=== PATIENT | male | born 1950 | race Caucasian/White ===

== ENCOUNTER 2017-09-30 07:26 | Emergency (ER) | payer MEDICARE, BC ==
[~2017-09-30] VITALS: Ht 182.9 cm; Wt 70.0 kg
[~2017-09-30 07:26] MED LIST: ASPIRIN 81 LOW81 MG PO; BACLOFEN10 MG OR; BACLOFEN10 MG PO; BACLOFEN20 MG OR; CIPRO500 MG OR; DOXYCYCL HYC100 M3 PO; IPRATROPIU0.5 MG/3 M IN; SMZ-TMP DS1 TAB PO; TAMSULOSIN0.4 MG PO
[2017-09-30 08:13] LABS: URINE BILIRUBIN - DIPSTICK NEGATIVE (NEGATIVE); URINE BLOOD DIPSTICK TRACE-INTACT (NEGATIVE); URINE COLOR YELLOW; URINE GLUCOSE - DIPSTICK NEGATIVE (NEGATIVE); URINE KETONE >=80 mg/dL (NEGATIVE); URINE LEUK ESTERASE TRACE (NEGATIVE); URINE PROTEIN - DIPSTICK 30 mg/dL (NEG-TRACE); URINE SPECIFIC GRAVITY >=1.030; URINE UROBILINOGEN - DIPSTICK 0.2 E.U./dL (0.2)
[2017-09-30 08:14] LABS: URINE CLARITY CLOUDY; URINE NITRITE - DIPSTICK POSITIVE (Negative)
[2017-09-30 08:22] LABS: URINE SQUAMOUS EPITHELIAL CELL MODERATE EPI/hpf (0-FEW); URINE WBC >100 WBC/hpf (0-5)
[2017-09-30 08:23] LABS: URINE BACTERIA MODERATE hpf; URINE RBC 0-2 RBC/hpf (0-5)
[2017-09-30 09:00] LABS: HEMATOCRIT 41.3 % (39.0-50.0); IMMATURE GRANULOCYTES 0.4 % (0.0-1.0); MEAN CELL VOLUME 90.6 fL CALC (80.0-100.0); MEAN CORPUSCULAR HGB 30.7 pG CALC (26.0-32.0); MEAN CORPUSCULAR HGB CONC 33.9 g/L CALC (32.0-36.0); NEUT# 11.54 thou/uL (1.82-7.42); RED BLOOD COUNT 4.56 mill/uL (4.70-6.10); RED CELL DISTRI WIDTH 13.7 % (11.5-15.5)
[2017-09-30 09:21] LABS: ALBUMIN 3.6 g/dL (3.2-5.0); ALKALINE PHOSPHATASE 63 u/l (38-126); ANION GAP 15 (6-22 (CALC)); BILIRUBIN, TOTAL 1.3 mg/dL (0.0-1.4); BUN 14 mg/dL (8-23); BUN/CREATININE RATIO 28 (12-20 (CALC)); CARBON DIOXIDE 28 mmol/l (22-30); CHLORIDE 101 mmol/l (95-108); CREATININE 0.5 mg/dL (0.7-1.3); GFR > 60 ML/MIN (>=60 (CALC)); GFR FOR AFR.AMER. > 60 ML/MIN (>=60 (CALC)); POTASSIUM 4.2 mmol/l (3.5-5.1); SGOT/AST 14 u/l (19-48); SGPT/ALT 33 u/l (11-66); SODIUM 140 mmol/l (137-146); TOTAL PROTEIN 5.8 g/dL (6.3-8.2)
[2017-09-30] MEDS ORDERED: PYRIDIUM200 MG PO (09:25)
[2017-09-30] MEDS ORDERED: BACTRIM DS1 TAB PO (09:25)
[2017-09-30 09:26] VITALS: BP 108/66
== END 2017-09-30 09:28 | disposition home or self-care (01) ==
LOC: ED 07:26
PROVIDERS: Emergency Medicine
DX: N39.0 Urinary tract infection, site not specified (principal); E03.9 Hypothyroidism, unspecified; G35 Multiple sclerosis; B96.20 Unspecified Escherichia coli [E. coli] as the cause of diseases classified elsewhere

== ENCOUNTER 2019-03-27 01:29 | Emergency (ER) | payer MEDICARE, BC ==
[~2019-03-27] VITALS: Ht 182.9 cm; Wt 67.7 kg
[2019-03-27 01:07] LABS: GFR > 60 ML/MIN (>=60 (CALC)); GFR FOR AFR.AMER. > 60 ML/MIN (>=60 (CALC))
[2019-03-27 01:10] LABS: HEMATOCRIT 43.6 % (39.0-50.0); HEMOGLOBIN 14.5 g/dl (14.0-18.0); IMMATURE GRANULOCYTES 0.4 % (0.0-5.0); MEAN CELL VOLUME 90.3 fL CALC (80.0-100.0); MEAN CORPUSCULAR HGB CONC 33.3 g/L CALC (32.0-36.0); NEUT# 8.85 thou/uL (1.82-7.42); RED BLOOD COUNT 4.83 mill/uL (4.70-6.10); RED CELL DISTRI WIDTH 13.4 % (11.5-15.5)
[2019-03-27 01:23] LABS: INTERNATIONAL NORMALIZED RATIO 0.9 RATIO (0.7-1.3); PROTHROMBIN TIME 9.9 SECONDS (9.0-12.5)
[2019-03-27 01:24] LABS: ALBUMIN 4.1 g/dL (3.2-5.0); ALKALINE PHOSPHATASE 98 u/l (38-126); ANION GAP 13 (6-22 (CALC)); BILIRUBIN, TOTAL 0.7 mg/dL (0.0-1.4); BUN 18 mg/dL (8-23); BUN/CREATININE RATIO 36 (12-20 (CALC)); CARBON DIOXIDE 31 mmol/l (22-30); CHLORIDE 99 mmol/l (95-108); CREATININE 0.5 mg/dL (0.7-1.3); ETHYL ALCOHOL 0 mg/dl (0-30); GFR > 60 ML/MIN (>=60 (CALC)); GFR FOR AFR.AMER. > 60 ML/MIN (>=60 (CALC)); POTASSIUM 4.2 mmol/l (3.5-5.1); SGOT/AST 24 u/l (19-48); SODIUM 139 mmol/l (137-146); TOTAL PROTEIN 6.7 g/dL (6.3-8.2)
[~2019-03-27 01:29] MED LIST changes: +BACTRIM DS1 TAB PO; +PYRIDIUM200 MG PO
[2019-03-27 01:36] LABS: MYOGLOBIN 32 ng/mL (0 - 121)
[2019-03-27 01:59] LABS: AMYLASE 60 u/l (30-110); LIPASE 184 u/l (23-300)
[2019-03-27 02:03] LABS: URINE BILIRUBIN - DIPSTICK NEGATIVE (NEGATIVE); URINE BLOOD DIPSTICK NEGATIVE (NEGATIVE); URINE COLOR YELLOW; URINE GLUCOSE - DIPSTICK NEGATIVE (NEGATIVE); URINE KETONE 15 mg/dL (NEGATIVE); URINE LEUK ESTERASE LARGE (NEGATIVE); URINE NITRITE - DIPSTICK POSITIVE (Negative); URINE PH 6.5 (4.5-8.0); URINE PROTEIN - DIPSTICK NEGATIVE (NEG-TRACE); URINE UROBILINOGEN - DIPSTICK 0.2 E.U./dL (0.2)
[2019-03-27 02:04] LABS: BARBITURATES NEGATIVE (NEGATIVE); COCAINE NEGATIVE (NEGATIVE); METHADONE NEGATIVE (NEGATIVE); OXCYCODONE NEGATIVE (NEGATIVE); TETRAHYDROCANNABIONOL NEGATIVE (NEGATIVE); TRICYLIC ANTIDEPRESSANTS NEGATIVE (NEGATIVE); URINE BACTERIA MANY hpf; URINE EPITHELIAL CELLS FEW EPI/hpf (0-FEW); URINE WBC 20-50 WBC/hpf (0-5)
[2019-03-27] MEDS ORDERED: ASPIRIN325 MG PO (02:26)
[2019-03-27 03:03] VITALS: BP 150/72
== END 2019-03-27 03:05 | disposition short-term general hospital (02) ==
LOC: ED 01:29
PROVIDERS: Emergency Medicine
DX: G93.40 Encephalopathy, unspecified (principal); R51 Headache; R47.01 Aphasia; R11.10 Vomiting, unspecified; N39.0 Urinary tract infection, site not specified; G35 Multiple sclerosis; Z99.3 Dependence on wheelchair; G82.20 Paraplegia, unspecified; E03.9 Hypothyroidism, unspecified; B96.89 Other specified bacterial agents as the cause of diseases classified elsewhere

== ENCOUNTER 2019-06-13 | Emergency (ER) | payer MEDICARE, BC ==
[~2019-06-13] MED LIST changes: +ASPIRIN325 MG PO
[2019-06-13 17:35] LABS: IMMATURE GRANULOCYTES 0.3 % (0.0-5.0); MEAN CELL VOLUME 91.8 fL CALC (80.0-100.0); MEAN CORPUSCULAR HGB 29.9 pG CALC (26.0-32.0); MEAN CORPUSCULAR HGB CONC 32.6 g/L CALC (32.0-36.0); NEUT# 8.47 thou/uL (1.82-7.42); RED BLOOD COUNT 5.01 mill/uL (4.70-6.10); RED CELL DISTRI WIDTH 13.2 % (11.5-15.5)
[2019-06-13 17:39] LABS: URINE BILIRUBIN - DIPSTICK NEGATIVE (NEGATIVE); URINE BLOOD DIPSTICK NEGATIVE (NEGATIVE); URINE COLOR YELLOW; URINE GLUCOSE - DIPSTICK NEGATIVE (NEGATIVE); URINE KETONE NEGATIVE (NEGATIVE); URINE LEUK ESTERASE NEGATIVE (NEGATIVE); URINE NITRITE - DIPSTICK NEGATIVE (Negative); URINE PH 6.5 (4.5-8.0); URINE PROTEIN - DIPSTICK NEGATIVE (NEG-TRACE); URINE UROBILINOGEN - DIPSTICK 0.2 E.U./dL (0.2)
[2019-06-13 17:54] LABS: ALBUMIN 4.2 g/dL (3.2-5.0); ALKALINE PHOSPHATASE 82 u/l (38-126); ANION GAP 9 (6-22 (CALC)); BILIRUBIN, TOTAL 0.6 mg/dL (0.0-1.4); BUN 14 mg/dL (8-23); CARBON DIOXIDE 30 mmol/l (22-30); CHLORIDE 100 mmol/l (95-108); LIPASE 63 u/l (23-300); POTASSIUM 4.1 mmol/l (3.5-5.1); SGOT/AST 18 u/l (19-48); SODIUM 136 mmol/l (137-146); TOTAL PROTEIN 6.7 g/dL (6.3-8.2)
[2019-06-13 18:34] LABS: BUN/CREATININE RATIO 35 (12-20 (CALC)); CREATININE 0.4 mg/dL (0.7-1.3); GFR > 60 ML/MIN (>=60 (CALC)); GFR FOR AFR.AMER. > 60 ML/MIN (>=60 (CALC))
[2019-06-13] MEDS ORDERED: ONDANSETRON4 MG PO (19:50)
[2019-06-14] MEDS ORDERED: ONDANSETRON4 MG PO ×2 (11:11)
== END 2019-06-13 21:04 | disposition home or self-care (01) ==
PROVIDERS: Family Medicine
DX: K52.9 Noninfective gastroenteritis and colitis, unspecified (principal); G35 Multiple sclerosis; E03.9 Hypothyroidism, unspecified; N39.0 Urinary tract infection, site not specified

== ENCOUNTER 2020-02-03 19:08 | Emergency (ER) | payer MEDICARE, BC ==
[~2020-02-03] VITALS: Ht 182.9 cm; Wt 70.5 kg
[~2020-02-03 19:08] MED LIST changes: +ONDANSETRON4 MG PO
[2020-02-03 20:18] LABS: HEMATOCRIT 43.2 % (39.0-50.0); IMMATURE GRANULOCYTES 0.2 % (0.0-5.0); MEAN CELL VOLUME 91.9 fL CALC (80.0-100.0); MEAN CORPUSCULAR HGB 29.8 pG CALC (26.0-32.0); MEAN CORPUSCULAR HGB CONC 32.4 g/dL CAL (32.0-36.0); NEUT# 3.16 thou/uL (1.82-7.42); RED BLOOD COUNT 4.7 mill/uL (4.70-6.10); RED CELL DISTRI WIDTH 13.2 % (11.5-15.5)
[2020-02-03 20:32] LABS: ALBUMIN 3.9 g/dL (3.2-5.0); ALKALINE PHOSPHATASE 73 u/l (38-126); ANION GAP 9 (6-22 (CALC)); BILIRUBIN, TOTAL 0.4 mg/dL (0.0-1.4); BUN 15 mg/dL (8-23); BUN/CREATININE RATIO 37 (12-20 (CALC)); CARBON DIOXIDE 32 mmol/l (22-30); CHLORIDE 100 mmol/l (95-108); CREATININE 0.4 mg/dL (0.7-1.3); GFR > 60 ML/MIN (>=60 (CALC)); GFR FOR AFR.AMER. > 60 ML/MIN (>=60 (CALC)); POTASSIUM 4.1 mmol/l (3.5-5.1); SGOT/AST 21 u/l (19-48); SODIUM 137 mmol/l (137-146)
[2020-02-03 21:20] LABS: URINE BILIRUBIN - DIPSTICK NEGATIVE (NEGATIVE); URINE BLOOD DIPSTICK NEGATIVE (NEGATIVE); URINE COLOR YELLOW; URINE GLUCOSE - DIPSTICK NEGATIVE (NEGATIVE); URINE KETONE NEGATIVE (NEGATIVE); URINE LEUK ESTERASE NEGATIVE (NEGATIVE); URINE NITRITE - DIPSTICK NEGATIVE (Negative); URINE PROTEIN - DIPSTICK NEGATIVE (NEG-TRACE); URINE SPECIFIC GRAVITY 1.015; URINE UROBILINOGEN - DIPSTICK 0.2 E.U./dL (0.2)
[2020-02-03] MEDS ORDERED: ZOFRAN4 MG/TAB PO (21:26)
[2020-02-03] MEDS ORDERED: TORADOL PO (21:26)
[2020-02-03 21:42] VITALS: BP 156/73
== END 2020-02-03 21:58 | disposition home or self-care (01) ==
LOC: ED 19:08
PROVIDERS: Family Medicine
DX: R51 Headache (principal); R11.0 Nausea; G35 Multiple sclerosis; E03.9 Hypothyroidism, unspecified; Z20.828 Contact with and (suspected) exposure to other viral communicable diseases; Z87.440 Personal history of urinary (tract) infections

== ENCOUNTER 2023-06-22 04:58 | Inpatient (IN) | payer MEDICARE, BC ==
[2023-06-22] VITALS (505 sets, daily range): BP systolic 68–156; BP diastolic 41–113
[~2023-06-22] VITALS: Ht 182.9 cm; Wt 68.0 kg
[~2023-06-22 04:58] MED LIST changes: +TORADOL PO; +ZOFRAN4 MG/TAB PO
[2023-06-22 05:21] LABS: BASO% 0.2 % (0-3); IMMATURE GRANULOCYTES 0.1 % (0.0-5.0); LYMPH% 2.7 % (15-41); MEAN CELL VOLUME 90.3 fL CALC (80.0-100.0); MEAN CORPUSCULAR HGB 29.1 pG CALC (26.0-32.0); MEAN CORPUSCULAR HGB CONC 32.3 g/dL CAL (32.0-36.0); MONO% 5.1 % (2-13); NEUT# 13.44 thou/uL (1.82-7.42); NEUT% 91.9 % (42-76); RED BLOOD COUNT 5.49 mill/uL (4.70-6.10); RED CELL DISTRI WIDTH 13.6 % (11.5-15.5)
--- NOTE | 2023-06-22 05:22 | NUR ---
MAG INFUSUION STOPPED AT THIS TIME. PATIENT BLOOD PRESSURE DID NOT TOLERATE IT.
--- NOTE | 2023-06-22 05:22 | NUR ---
COUNSELLING PSYCHOLOGIST AT BEDSIDE. ABG OBTAINED RESPIRATIONS CURRENTLY 55RPM. HR RATE ELEVATED AT 138. BLOOD PRESSURE 103/55.
[2023-06-22 05:28] LABS: HEMATOCRIT 49.6 % (39.0-50.0)
--- NOTE | 2023-06-22 05:31 | NUR ---
DILTIAZEM BOLUS GIVEN AT THIS TIME, REFERENCE EMAR.
[2023-06-22] MEDS ORDERED: BACTRIM DS1 TAB PO (05:42)
[2023-06-22] MEDS ORDERED: OMEPRAZOLE DR40 MG (05:42)
[2023-06-22] MEDS ORDERED: MONTELUKAST SOD10 MG PO (05:42)
--- NOTE | 2023-06-22 05:52 | NUR ---
AT BEDSIDE. CONSENT SIGNED FOR FEMORAL LINE.
--- NOTE | 2023-06-22 05:55 | NUR ---
R FEMORAL LINE INSERTED.
--- NOTE | 2023-06-22 06:00 | NUR ---
PER MD METOPROLOL ORDER WAS AN ERROR. MD HAS ORDERED TO HOLD THIS MEDICATION.
[2023-06-22 06:12] LABS: ALBUMIN 3.7 g/dL (3.2-5.0); ALKALINE PHOSPHATASE 84 u/l (38-126); BUN 23 mg/dL (8-23); BUN/CREATININE RATIO 45 (12-20 (CALC)); CHLORIDE 101 mmol/l (95-108); CREATININE 0.5 mg/dL (0.7-1.3); GFR FOR AFR.AMER. > 60 ML/MIN (>=60 (CALC)); GFR OTHER RACES > 60 ML/MIN (>=60 (CALC)); SGOT/AST 26 u/l (19-48); SODIUM 137 mmol/l (137-146); TOTAL PROTEIN 6.4 g/dL (6.3-8.2)
[2023-06-22 06:13] LABS: ANION GAP 18 (6-22 (CALC)); BILIRUBIN, TOTAL 0.9 mg/dL (0.2-1.3); CARBON DIOXIDE 22 mmol/l (22-30)
--- NOTE | 2023-06-22 06:15 | NUR ---
#16 F ORELLANA PLACED. PER PATIENT STRAIGHT CATHS HIMSELF, BUT HAS NOT BEEN ABLE TO DO SO IN TWO DAYS. 350ML OF YELLOW URINE EMPTIED. URINE SAMPLE COLLECTED.
--- NOTE | 2023-06-22 07:10 | NUR ---
report rec'd from norberto rn, pt started on cardizem drip by evening or night nurse supervisor rn. pt respiratory rate in the 50's on bipap, hr in 140's. pt alert and able to answer basic questions. bedside.
--- NOTE | 2023-06-22 07:13 | NUR ---
REPORT GIVEN TO William OVALLES RN. PATIENT SETTLED INTO BED, LINEN CHANGED AND PATIENT REPOSITIONED. CARDIZEM AND LEVOPHED STARTED.
--- NOTE | 2023-06-22 07:25 | NUR ---
getting pt set up for intubation by dr. cobos.
--- NOTE | 2023-06-22 07:42 | NUR ---
rocuronium and etomidate given for intubation, pt intubated by dr. cobos with 8.0 et tube secured at 22 at teeth.
[2023-06-22 08:07] LABS: URINE BLOOD DIPSTICK Negative (NEGATIVE); URINE GLUCOSE - DIPSTICK Negative (NEGATIVE); URINE KETONE >=160 mg/dL (NEGATIVE); URINE LEUK ESTERASE Negative (NEGATIVE); URINE NITRITE - DIPSTICK Negative (Negative); URINE PROTEIN - DIPSTICK 100 mg/dL (NEG-TRACE); URINE SPECIFIC GRAVITY >=1.030; URINE UROBILINOGEN - DIPSTICK 0.2 E.U./dL (0.2)
[2023-06-22 08:08] LABS: URINE COLOR Dark yellow
--- NOTE | 2023-06-22 08:10 | NUR ---
pt transported to ct with respiratory, patient on monitor, vitals stable.
[2023-06-22 08:21] LABS: URINE AMORPH SEDIMENT FEW hpf (NONE-FER); URINE BACTERIA FEW hpf; URINE HYALINE CAST FEW lpf (NONE-RARE); URINE RBC 0-2 RBC/hpf (0-5); URINE SQUAMOUS EPITHELIAL CELL FEW EPI/hpf (0-FEW); URINE TRANSITIONAL EPI. CELLS FEW hpf
[2023-06-22 08:23] LABS: URINE MUCUS MODERATE hpf (NONE-FEW)
--- NOTE | 2023-06-22 08:25 | NUR ---
levo on 25 mcg/min, propofol 35 mcg/kg/min. pt vitals stable
--- NOTE | 2023-06-22 08:59 | NUR ---
pt sedated, tolerating vent well, vitals stable, unable to get og tube in, both and i attempted.
--- NOTE | 2023-06-22 09:26 | NUR ---
ADVANCED ET TUBE 2CM AND RR INCREASED TO 20 PER .
--- NOTE | 2023-06-22 09:45 | NUR ---
bp decreased, propofol decreased to 30 mcg/kg/min, levofed increased to 30 mcg/min. vitals stable again
--- NOTE | 2023-06-22 10:16 | NUR ---
pt antibiotics complete, pt remains sedated, vitals stable. back at bedside. awaiting admission orders
--- NOTE | 2023-06-22 11:13 | NUR ---
report given to bella mcmillan, icu
--- NOTE | 2023-06-22 11:39 | NUR ---
pt transported to icu with second rn and respiratory, pt stable on transport
--- NOTE | 2023-06-22 11:40 | NUR ---
RECEIVED BEDSIDE REPORT FROM AUGUSTINA LOWRY. PT ARRIVES OBTUNDED AND INTUBATED. PROPOFOL @ 30. LEVOPHED AT 30. ORELLANA IN PLACE DRAINING MARC URINE WITH COPIOUS AMOUNTS OF SEDIMENT. RIGHT FEMORAL TLC IN PLACE WELL BILATERAL AC PERIPHERAL IV'S. ALL PATENT AND FUNCTIONING PROPERLY. ALL SAFETY EQUIPMENT IN PLACE AND FUNCTIONING PROPERLY.
--- NOTE | 2023-06-22 13:39 | NUR ---
S: JOSE R HERNANDEZ is a 73 M who presents with pneumonia, UTI and sepsis. He has a history of multiple sclerosis and hypothyroidism. All medications in patient's chart were reviewed. O: VS: BP:142/67 mmHg, P:94 bpm, RR:20bpm,T:98.4F W: 68kg, HT:72in, Scr=0.5 mg/dl,CrCl= 62.3ml/min A: Blood culture is pending. P: Patient is on cefepime 2gm IV Q8H and Flagyl 500mg IV Q8H. Vancomycin ordered for pharmacy to dose. Start Vancomycin 750mg IV Q12H. Vancomycin trough is drawn before the 4th dose on 06/24/23 at 01:30. Vancomycin goal trough is between 15-20 mcg/ml. Pharmacy will follow and or advise on antibiotics use as needed.
--- NOTE | 2023-06-22 13:58 | NUR ---
ROCURONIUM AND ETOMIDATE GIVEN AT 0742 THIS MORNING
--- NOTE | 2023-06-22 17:52 | NUR ---
DR CM ON TELEHEALTH SCREEN IN ROOM WITH PT AND SPOUSE. AGREES WITH CURRENT TREATMENT. CHANGED VASOPRESSIN DOSE FROM 0.03 TO 0.04.
--- NOTE | 2023-06-22 20:00 | NUR ---
PATIENT REPOSITIONED TO L SIDE. ORAL CARE PROVIDED. PATIENT VENTILATED AND SEDATED ON 35 MCG OF PROP (14.3 ML/HR) IN LAC. ST ON THE MONITOR. ORELLANA PATENT AND DRAINING TO GRAVITY, MARC URINE NOTED. LUNG WHEEZING/COARSE TO ASCULTATION. ABDOMEN SOFT. PERIPHERAL PULSES STRONG, PEDAL PULSES WEAK. B/L EDEMA NOTED IN LEG/FEET. NO APPARENT DISTRESS NOTED. SAFETY MEASURES IN PLACE INCLUDING BED IN LOW POSITION. WILL CONTINUE WITH PLAN OF CARE. VENT SETTINGS FOLLOWED: FIO2 50% VT 450 RR 20 PEEP 8
--- NOTE | 2023-06-22 20:11 | NUR ---
SPOKE WITH DR. CHAVES ON THE PHONE. STATED ZERO CHANGES WITH PATIENT AT THIS TIME.
--- NOTE | 2023-06-22 21:00 | NUR ---
COMPLETE BED BATH PROVIDED.
[2023-06-23] VITALS (85 sets, daily range): BP systolic 79–154; BP diastolic 41–87
--- NOTE | 2023-06-23 00:01 | NUR ---
PATIENT REPOSITIONED SUPINE. ORAL CARE PROVIDED. NO URINE NOTED IN ORELLANA. NO APPARENT DISTRESS NOTED. PROP INCREASED TO 40 MCG (16.3) D/T PATIENT LIFTING ARM TOWARDS ET. NO RESTRAINTS NECESSARY AT THIS TIME. BED IN LOW POSITION. WILL CONTINUE WITH PLAN OF CARE.
--- NOTE | 2023-06-23 02:30 | NUR ---
PATIENT REPOSITIONED TO R SIDE. ORAL CARE PROVIDED. SR ON THE MONITOR. NO APPARENT DISTRESS NOTED. WILL CONTINUE WITH PLAN OF CARE.
--- NOTE | 2023-06-23 04:00 | NUR ---
PATIENT RESPOSTIONED TO L SIDE. ORAL CARE PROVIDED. AFEBRILE. SR ON THE MONITOR. NO ISSUES AT THIS TIME. SAFETY MEASURES IN PLACE. WILL CONTINUE WITH PLAN OF CARE.
--- NOTE | 2023-06-23 05:54 | NUR ---
PATIENT REPOSITIONED SUPINE. 35 ML OF URINE IN ORELLANA. ORAL CARE PROVIDED. OG TUBE DROPPED. CXRAY/LABS OBTAINED. SAFETY MEASURES IN PLACE. WILL CONTINUE WITH PLAN OF CARE.
[2023-06-23 06:50] LABS: BASO% 0.1 % (0-3); IMMATURE GRANULOCYTES 0.2 % (0.0-5.0); LYMPH% 5.2 % (15-41); MEAN CELL VOLUME 90.9 fL CALC (80.0-100.0); MEAN CORPUSCULAR HGB 29.4 pG CALC (26.0-32.0); MEAN CORPUSCULAR HGB CONC 32.3 g/dL CAL (32.0-36.0); MONO% 5.8 % (2-13); NEUT# 13.21 thou/uL (1.82-7.42); NEUT% 88.7 % (42-76); RED BLOOD COUNT 3.64 mill/uL (4.70-6.10); RED CELL DISTRI WIDTH 14.1 % (11.5-15.5)
[2023-06-23 07:15] LABS: HEMATOCRIT 33.1 % (39.0-50.0); HEMOGLOBIN 10.7 g/dl (14.0-18.0)
--- NOTE | 2023-06-23 07:19 | NUR ---
REPORT GIVEN TO NEWTON PENDLETON
[2023-06-23 07:22] LABS: ANION GAP 8 (6-22 (CALC)); BUN 21 mg/dL (8-23); BUN 22 mg/dL (8-23); BUN/CREATININE RATIO 62 (12-20 (CALC)); CARBON DIOXIDE 22 mmol/l (22-30); CHLORIDE 107 mmol/l (95-108); CHLORIDE 108 mmol/l (95-108); CREATININE 0.4 mg/dL (0.7-1.3); GFR FOR AFR.AMER. > 60 ML/MIN (>=60 (CALC)); GFR OTHER RACES > 60 ML/MIN (>=60 (CALC)); POTASSIUM 3.5 mmol/l (3.5-5.1); POTASSIUM 3.7 mmol/l (3.5-5.1); SODIUM 134 mmol/l (137-146)
[2023-06-23 07:30] LABS: ALBUMIN 2.2 g/dL (3.2-5.0)
--- NOTE | 2023-06-23 08:00 | NUR ---
REPORT RECIEVED FROM NIGHT RN. PT ADMITTED YESTERDAY FOR ACUTE RESPIRATORY FAILURE AND WAS INTUBATED IN ED YESTERDAY. SHIP WASHER ATEMPTED TO DO WEANING TRIAL BUT WAS UNABLE PT NOT FOLLOWING COMMANDS. PT SEDATED APPROPRIATELY RASS -2. PT TOLERATING CURRENT VENT SETTINGS WELL; RT WAS AT BEDSIDE TO ADJUST. LUNGS COARSE/RHONCHI. THICK ORAL SECRETIONS SUCTIONED; MOUTH CARE PROVIDED. HEART RHYTHM REGULAR; PT IS NSR ON MONITOR. BOWEL SOUNDS HYPOACTIVE. PULSES STRONG UPPER EXTREMETIES, WEAK LOWER EXTREMETIES. +1 EDEMA BILATERAL LOWER EXTREMETIES. ORELLANA CATHETER IN PLACE. I/O BEING MONITORED. IV ACCESS 20G RAC AND R FEMORAL TRIPLE LUMEN. IV IN LAC REMOVED IS NOT NECESSARY AT THIS TIME. PT'S BP MAINTAINED WITH LEVOPHED; PT SEDATED WITH PROPOFOL. VSS AT THIS TIME. PT REPOSITIONED FOR COMFORT.
--- NOTE | 2023-06-23 08:56 | NUR ---
PHONE CALL FROM PT'S SPOUSE. SPOUSE UPDATED ON PT CONDITION.
--- NOTE | 2023-06-23 09:45 | NUR ---
PT'S SPOUSE AT BEDSIDE. VSS. PT TOLERATING CURRENT VENT SETTINGS WELL.
--- NOTE | 2023-06-23 09:50 | NUR ---
TELE VISIT WITH DR. CM COMPLETED.
--- NOTE | 2023-06-23 11:30 | NUR ---
PT REPOSITIONED FOR COMFORT AND ORAL SUCTIONING PERFORMED. VSS.
--- NOTE | 2023-06-23 13:00 | NUR ---
PT REPOSITIONED FOR COMFORT AND MOUTH CARE/ ORAL SUCTIONING PERFORMED. REPOSITIONING AND MOUTH CARE DONE AT LEAST Q2H. PT'S SPOUSE AT BEDSIDE. PT REMAINS SEDATED WITH PROPOFOL RASS -2 AND BP MAINTAINED WITH LEVOPHED. PT TOLERATING VENT SETTINGS WELL.
--- NOTE | 2023-06-23 13:30 | NUR ---
PT WAS REACHING FOR TUBING. SEDATION INCREASED SLIGHTLY AND ORDERS RECIEVED FROM DR. SMITH FOR RESTRAINTS. BILATERAL SOFT WRIST RESTRAINTS IN USE FOR PT SAFETY.
--- NOTE | 2023-06-23 15:30 | NUR ---
ATTEMPTING TO WEAN SEDATION AND LEVOPHED. WILL ATTEMPT WEANING TRIAL. VSS.
--- NOTE | 2023-06-23 16:52 | NUR ---
NO CHAMNGES TO PT STATUS. PT NOT FOLLOWING DIRECTIONS WHEN WEANED OFF SEDATION. SEDATION BACK TO ACHIEVE RASS -2. PT'S SPOUSE AT BEDSIDE. VSS.
--- NOTE | 2023-06-23 18:15 | NUR ---
PT REPOSITIONED AND ORAL SUCTIONING PERFORMED. LEVOPHED GTT WEANED OFF AT THE MOMENT; WILL MONITOR TO ENSURE PT'S BP TOLERATES. VSS.
--- NOTE | 2023-06-23 19:00 | NUR ---
REPORT RECEIVED FROM OFF GOING NURSE.
--- NOTE | 2023-06-23 20:00 | NUR ---
PATIENT NOTED LYINGIN BED RESTING WITH NO ACUTE DISTRESS NOTED. HE APPEARS UNCOMFORTABLE AND ATTEMPTING TO REACH FOR TUBING. PROPROFOL INCREASED TO 30 AT THIS TIME. PATIENT REPOSITIONED AND MOUTHCARE GIVEN. ASSESSMENT COMPLETED (SEE INTERVNETIONS). WILL CONTINUE TO MONITOR.
--- NOTE | 2023-06-23 22:00 | NUR ---
PATIENT REPOSITIONED. MOUTH CARE GIVEN. VSS. NO ACUTE DISTRESS NOTED. WILL CONTINUE TO MONITOR.
[2023-06-24] VITALS (139 sets, daily range): BP systolic 77–160; BP diastolic 41–89
--- NOTE | 2023-06-24 | NUR ---
PATIENT REPOSITIONED, MOUTH CARE GIVEN. VSS. NO SIGNIFICANT CHANGES NOTED. WILL CONTINUE TO MONITOR.
--- NOTE | 2023-06-24 02:00 | NUR ---
NO CHANGES NOTED, MOUTH CARE COMPLETED. PATIENT REPOSTIONED.
--- NOTE | 2023-06-24 04:00 | NUR ---
NO CHANGES NOTED. MOUTH CARE GIVEN, PATIENT REPOSITIONED. WILL CONTINUE TO MONITOR.
--- NOTE | 2023-06-24 05:00 | NUR ---
PATIENT RECEIVED FULL BED BATH AND LINEN CHANGE. WILL CONTINUE TO MONITOR.
[2023-06-24 05:24] LABS: BASO% 0.1 % (0-3); HEMOGLOBIN 9.6 g/dl (14.0-18.0); IMMATURE GRANULOCYTES 0.2 % (0.0-5.0); LYMPH% 3.6 % (15-41); MEAN CELL VOLUME 90.3 fL CALC (80.0-100.0); MEAN CORPUSCULAR HGB 29.9 pG CALC (26.0-32.0); MEAN CORPUSCULAR HGB CONC 33.1 g/dL CAL (32.0-36.0); MONO% 5.7 % (2-13); NEUT# 11.43 thou/uL (1.82-7.42); NEUT% 90.4 % (42-76); RED BLOOD COUNT 3.21 mill/uL (4.70-6.10); RED CELL DISTRI WIDTH 14.2 % (11.5-15.5)
[2023-06-24 05:32] LABS: ANION GAP 8 (6-22 (CALC)); BUN 18 mg/dL (8-23); BUN/CREATININE RATIO 46 (12-20 (CALC)); CARBON DIOXIDE 21 mmol/l (22-30); CHLORIDE 111 mmol/l (95-108); CREATININE 0.4 mg/dL (0.7-1.3); GFR FOR AFR.AMER. > 60 ML/MIN (>=60 (CALC)); GFR OTHER RACES > 60 ML/MIN (>=60 (CALC)); POTASSIUM 3.8 mmol/l (3.5-5.1); SODIUM 137 mmol/l (137-146)
--- NOTE | 2023-06-24 07:06 | NUR ---
REPORT GIVENT TO ONCOMING NURSE.
--- NOTE | 2023-06-24 07:40 | NUR ---
ORDERS RECIEVED FROM DR. SMITH TO ORDER INFECTIOUS DISEASE CONSULT AND RESTART LEVOPHED GTT. PT'S SYSTOLIC RANGING FROM HIGH 80'S TO LOW 100'S; MAP REMAINING 60 OR BETTER. LEVOPHED GTT RE-STARTED PER DR. SMITH'S REQUEST. PHONE CALL RECIEVED FROM [facility] IN RADIOLOGY REGARDING PT'S ET TUBE PLACEMENT. RT NOTIFIED OF FINDING.
--- NOTE | 2023-06-24 07:49 | NUR ---
RT AT BEDSIDE TO ADJUST ET TUBE. PHONE CALL FROM PT'S RECIEVED AND UPDATED ON PT'S NIGHT.
--- NOTE | 2023-06-24 07:50 | NUR ---
0745 ETT WITH DRAWN 2 CM FROM 26CM TO 24CM PER RADIOLOGY. ETT SECURED. BBS CONFIRMED.
--- NOTE | 2023-06-24 08:00 | NUR ---
REPORT RECIEVED FROM NIGHT RN. PT SEDATED AND VENTILATED. TOLERATING CURRENT VENT SETTINGS WELL. LUNGS COARSE. BOWEL SOUNDS HYPOACTIVE. PULSES STRONG UPPER EXTREMEIES, WEAK LOWER. +2 EDEMA BILATERAL LOWER EXTREMETIES. SKIN W/D/I. VSS.
--- NOTE | 2023-06-24 08:33 | NUR ---
ATTEMPTING TO DO WEANING TRIAL WITH PT. PT OPENING EYES AND FOLLOWING COMMANDS BUT HR ELEVATED.
--- NOTE | 2023-06-24 09:00 | NUR ---
PT TOLERATING WAKENING TRIAL WELL AND FOLLOWING COMMANDS. NOTIFIED DR. SMITH AND APPROVED TO PLACE PT ON CPAP MODE FOR WEANING TRIAL. PT OFF SEDATION DURING TRIAL AND TOLERATING WELL.
--- NOTE | 2023-06-24 10:00 | NUR ---
DR. SMITH AT BEDSIDE TO ASSESS PT. PT'S RR ELEVATED MORE THAN IT HAS BEEN. PT TO BE PLACED BACK ON VC-AC MODE WITH SEDATION. RT AT BEDSIDE TO CHANGE VENT MODE. PT DOING WELL.
--- NOTE | 2023-06-24 12:02 | NUR ---
S: JOSE R HERNANDEZ is a 73 M who presents with Sepsis, pneumonia and UTI . He has a history of multiple sclerosis, hypothyroidism, scoliosis and recurrent UTI. All medications in patient's chart were reviewed. O: VS: BP: 109/58 mmHg, P: 85 bpm, RR: 20 bpm, T: 97.6 F W: 68 kg, HT: 72 in, Scr: 0.4(1), CrCl: 62.3 ml/min Vancomycin trough: 8 ug/dl A: Preliminary blood culture show no growth after 48 hours incubation. P: Patient is on Metronidazole 500 mg IV Q8H, Cefepime 2 mg IV Q8H and vancomycin 750 mg IV Q12H Vancomycin ordered for pharmacy to dose. Discontinue vancomycin 750 mg IV Q12H Initiate vancomycin 1 gm IV Q12H. Vancomycin trough will be drawn on 06/26/23 @0130. Vancomycin goal trough is between 15-20 mcg/ml. Pharmacy will follow and or advise on antibiotics use as needed.
--- NOTE | 2023-06-24 13:45 | NUR ---
MULTIPLE ATTEMPTS TO INSERT [place] FEEDING TUBE ATTEMPTED WITH RT AND MANAGEMENT AT BEDSIDE. ATTEMPTS UNSUCCESSFUL. RESTRAINTS REMOVED FOR PT CARE; NO NEED FOR REAPPLICATION AT THIS TIME PT IS SEDATED WELL AND HAS NOT BEEN LIFTING ARMS TO REACH FOR LINES/TUBES.
--- NOTE | 2023-06-24 13:53 | NUR ---
PT'S O2 SATURATION DROPPING TO HIGH 70'S. RT NOTIFIED AND RAPID RESPONSE CALLED.
--- NOTE | 2023-06-24 14:06 | NUR ---
PHONE CALL PLACED TO DR. CM FOR ASSISTANCE IN PT MANAGEMENT AND RECOMMENDATIONS ON PT CARE. DR. CORDON , MANAGEMENT, ICU DIRECTOR, AND RT'S AT BEDSIDE.
--- NOTE | 2023-06-24 14:11 | NUR ---
PHONE CALL PLACED TO DR. CM TO UPDATE ON PT STATUS. DR. CM ON TELE-MONITOR TO SEE PT AND SPEAK WITH STAFF. CXR COMPLETED; DR. CM REVIEWED IMAGE AND STATED HE DID NOT SEE PNEUMOTHORAX. RECOMMENDATIONS TO BAG PT WITH PEEP VALVE. PT CURRENTLY BEING BAGGED WITHOUT PEEP VALVE; O2SAT IN 80'S. RT NOTIFIED AND GETTING VALVE PER RECOMMENDATIONS.
--- NOTE | 2023-06-24 14:37 | NUR ---
PHONE CALL PLACED TO PT'S TO UPDATE ON SITUATION. PT'S CONFIRMED THAT SHE WOULD LIKE EVERYTHING DONE.
--- NOTE | 2023-06-24 14:51 | NUR ---
DR. CM NOTIFIED OF PT'S SUSTAINED HR IN 130-140'S. SO FAR PT HAS BEEN UNABLE TO MAINTAIN O2 SAT ON VENTILATOR EVEN WITH ADJUSTMENT OF SETTINGS. PT BEING BAGGED WITHOUT PEEP VALVE PT DESATURATED WITH PEEP VALVE ATTACHED.
--- NOTE | 2023-06-24 14:55 | NUR ---
DR. CORDON IN UNIT FOR REINTUBATION OF PT PER DR. CM'S RECOMMENDATIONS.
--- NOTE | 2023-06-24 15:10 | NUR ---
1509 OLAMIDE ADMINISTERED IVP UNDER DIRECTION OF DR. CORDON. PT REINTUBATED AT [address] CORDON. RT AT BEDSIDE.
--- NOTE | 2023-06-24 15:33 | NUR ---
ABG RESULTS COMMUNICATED WITH DR. CM. ORDERS RECIEVED FOR VECURONIUM GTT WELL CONTINUOUS NEBS AND CHEST CT WITH [id number] WHEN PT STABILIZED.
--- NOTE | 2023-06-24 15:47 | NUR ---
PT STARTED ON NEB TX VIA VENTILATOR WITH DUONEB, CÉSAR WELL
--- NOTE | 2023-06-24 15:53 | NUR ---
PT STABILIZED AT THIS TIME ON VENTILATOR ON PRESSURE CONTROL; 02SAT HOLDING AT 90%. PSYCHIATRY TEACHER DR. CM FOLLOWING. PT STARTED ON VECURONIUM; MONITORING WITH TRAIN OF FOUR AND BIS MONITOR. CURRENT READINGS WITHIN DESIRED RANGE. SEDATION WITH PROPOFOL AND BP MAINTAINED WITH LEVOPHED. CASE MANAGEMENT WORKING ON EMERGENT TRANSFER. PT'S SPOUSE IN WAITING ROOM AWARE OF SITUATION AND PREFERS TO WAIT OUTSIDE OF ROOM.
--- NOTE | 2023-06-24 16:15 | NUR ---
PT'S SPOUSE AT BEDSIDE. ALL QUESTIONS ANSWERED. PT REMAINS STABLE AT THIS ITME. VENT SETTINGS ADJUSTED BY RT PER DR. CM'S RECOMMENDATIONS. PT'S HR REMAINS ELEVATED IN 150'S. O2SAT REMAINS 90-92%. SEDATION AND PARALYTIC MONITORED WITH BIS AND TRAIN OF FOUR.
--- NOTE | 2023-06-24 17:46 | NUR ---
PT'S SPOUSE AT BEDSIDE. PT REMAINS STABLE BUT O2SAT BETWEEN 88-90% ON VENTILATOR. PT PROPERLY SEDATED.
--- NOTE | 2023-06-24 18:00 | NUR ---
VECURONIUM GTT MIXED WITH ICU DIRECTOR SUPERVISION. MEDICATION DOSING DOUBLE CHECKED. PHARMACY NOT IN HOUSE TO MIX MEDICATION BUT APPROPRIATE STAFF NOTIFIED AND APPROVED BY MANAGEMENT.
--- NOTE | 2023-06-24 18:41 | NUR ---
PT STABEL. HR REMAINS ELEVATED. O2 SATURATION 97%. SEDATION AND PARALYTIC MONIROTED WITH TRAIN OF FOUR AND BIS MONITOR.
--- NOTE | 2023-06-24 18:43 | NUR ---
PHONE CALL RECIEVED FROM TRANSFER CENTER REQUESTING ORDER FOR TRANSFER TO BE FAXED. TRANSFER ORDER FAXED TO NUMBER GIVEN.
--- NOTE | 2023-06-24 19:00 | NUR ---
REPORT RECEIVED FROM OFF GOING NURSE.
--- NOTE | 2023-06-24 20:03 | NUR ---
AEROMED ARRIVED TO [employer] SUPERVISOR PATIENT TO TRANSPORT HIM TO [facility]. PATIENTS SPOUSE ALSO NOTIFIED OF TRANSPORT.
--- NOTE | 2023-06-24 20:38 | NUR ---
[facility] MADE AWARE OF PATIENT BEING TRANSFERRED TO [facility].
--- NOTE | 2023-06-24 23:21 | NUR ---
[facility] NOTIFIED TO CANCEL TRANSFER.
== END 2023-06-24 20:03 | DRG 871 ==
LOC: ED 04:58 → ED-I 08:50 → ED 09:27 → ICU 09:28
PROVIDERS: Family Medicine; Internal Medicine Nephrology; ADMIT Student in an Organized Health Care Education/Training Program; ATTEND Student in an Organized Health Care Education/Training Program
PROC: 5A09357 Assistance with Respiratory Ventilation, Less than 24 Consecutive Hours, Continuous Positive Airway Pressure (ICD-10-PCS; principal; 2023-06-22)
PROC: 06HY33Z Insertion of Infusion Device into Lower Vein, Percutaneous Approach (ICD-10-PCS; 2023-06-22)
PROC: 3E043XZ Introduction of Vasopressor into Central Vein, Percutaneous Approach (ICD-10-PCS; 2023-06-22)
PROC: 0BH17EZ Insertion of Endotracheal Airway into Trachea, Via Natural or Artificial Opening (ICD-10-PCS; 2023-06-22)
PROC: 5A1945Z Respiratory Ventilation, 24-96 Consecutive Hours (ICD-10-PCS; 2023-06-22)
PROC: 0T9B70Z Drainage of Bladder with Drainage Device, Via Natural or Artificial Opening (ICD-10-PCS; 2023-06-22)
PROC: 0B21XEZ Change Endotracheal Airway in Trachea, External Approach (ICD-10-PCS; 2023-06-24)
DX: A41.9 Sepsis, unspecified organism (principal); J18.9 Pneumonia, unspecified organism; R65.21 Severe sepsis with septic shock; J96.01 Acute respiratory failure with hypoxia; J96.22 Acute and chronic respiratory failure with hypercapnia; N17.0 Acute kidney failure with tubular necrosis; E87.20 Acidosis, unspecified; E87.1 Hypo-osmolality and hyponatremia; I95.9 Hypotension, unspecified; G35 Multiple sclerosis; E87.6 Hypokalemia; N18.2 Chronic kidney disease, stage 2 (mild); E03.9 Hypothyroidism, unspecified; N40.0 Benign prostatic hyperplasia without lower urinary tract symptoms; Z87.440 Personal history of urinary (tract) infections; Z87.01 Personal history of pneumonia (recurrent); Z20.822 Contact with and (suspected) exposure to COVID-19
CPT/HCPCS: J0692; J1650; J3370; J3475; Q9967; S0164